=== PATIENT | male | born 1970 | race African-American/Black ===

== ENCOUNTER 2020-01-11 21:36 | Emergency (ER) | payer BC ==
[~2020-01-11] VITALS: Ht 165.1 cm; Wt 77.1 kg
[~2020-01-11 21:36] MED LIST: ATIVAN0.5 MG PO; ENALAPRIL MALE2.5 MG PO; NEXIUM40 MG PO
[2020-01-11 21:45] VITALS: BP 150/100
--- NOTE | 2020-01-11 21:45 | NUR ---
ED Nurse Note: Patient brought into ED by RIGOBERTO SOTELO [id number] from home for concern of high BP. Patient states he started feeling anxious and had sweaty hands and feet and proceeded to check his BP which was 182/108 at home. Upon ED arrival, pt placed in room and connected to cardiac cath technician. Pt BP noted at 150/100 at this time. He denies SOB, CP, N/V/D. He is aaox4, breathing is normal and unlabored at this time. Will cont. to monitor.
--- NOTE | 2020-01-11 21:50 | NUR ---
ED Nurse Note: Patient also states he took an extra dose of his prescribed lisinopril at home.
[2020-01-11 22:07] LABS: BASOPHILS % (AUTO) 2.1 % (0.0-2.0); EOSINOPHILS % (AUTO) 1.6 % (0.0-3.0); HEMATOCRIT 44.9 % (42.0-52.0); LYMPHOCYTES % (AUTO) 28.1 % (20.0-45.0); MEAN CORPUSCULAR VOLUME 90 FL (80-99); MONOCYTES % (AUTO) 6.4 % (1.0-10.0); NEUTROPHILS % (AUTO) 61.8 % (45.0-75.0); PLATELET COUNT 271 K/UL (150-450); RED CELL DISTRIBUTION WIDTH 14.1 % (11.6-14.8); WHITE BLOOD COUNT 6.3 K/UL (4.8-10.8)
[2020-01-11 22:17] LABS: ANION GAP 9 mmol/L (5-15); BLOOD UREA NITROGEN 12 mg/dL (7-18); CALCIUM 9.2 MG/DL (8.5-10.1); CARBON DIOXIDE 28 MMOL/L (21-32); CHLORIDE 105 MMOL/L (98-107); CREATININE 1.2 MG/DL (0.55-1.30); POTASSIUM 3.7 MMOL/L (3.5-5.1); SODIUM 142 MMOL/L (136-145)
[2020-01-11 22:30] LABS: ALANINE AMINOTRANSFERASE 57 U/L (12-78); ALBUMIN 4.3 G/DL (3.4-5.0); ALBUMIN/GLOBULIN RATIO 1.4 (1.0-2.7); ALKALINE PHOSPHATASE 58 U/L (46-116); ASPARTATE AMINO TRANSFERASE 33 U/L (15-37); BILIRUBIN,TOTAL 0.8 MG/DL (0.2-1.0)
--- NOTE | 2020-01-11 22:31 | Diagnostic Imaging Report ---
EXAM: CT Head Without Intravenous Contrast CLINICAL HISTORY: PAIN TECHNIQUE: Axial computed tomography images of the head/brain without intravenous contrast. CTDI is 53.4 mGy and DLP is 1018.8 mGy-cm. One or more of the following dose reduction techniques were used: automated exposure control, adjustment of the mA and/or kV according to patient size, use of iterative reconstruction technique. COMPARISON: No relevant prior studies available. FINDINGS: Brain: Unremarkable. No hemorrhage. No significant white matter disease. No edema. Ventricles: Unremarkable. No ventriculomegaly. Bones/joints: Unremarkable. No acute fracture. Soft tissues: Unremarkable. Sinuses: Unremarkable as visualized. No acute sinusitis. Mastoid air cells: Unremarkable as visualized. No mastoid effusion. IMPRESSION: Unremarkable head/brain CT.
[2020-01-11 22:45] VITALS: BP 143/87
--- NOTE | 2020-01-11 22:45 | NUR ---
ED Nurse Note: Patient is resting in bed at this time. NAD noted. BP is lower than initial BP upon arrival. Patient appears calm. Safety measures met; will continue to monitor.
[2020-01-11 23:33] VITALS: BP 140/88
--- NOTE | 2020-01-11 23:33 | NUR ---
ER DISCHARGE NOTE: Patient is cleared to be discharged per ERMD, pt is aox4, on room air, with stable vital signs. pt was given dc instructions, pt was able to verbalize understanding, pt id band removed. pt is able to ambulate with steady gait. pt took all belongings.
--- NOTE | 2020-01-11 23:57 | Emergency Room Report ---
History of Present Illness General Chief Complaint: General Complaint Source: Patient Present Illness HPI Patient is a 49-year-old male presents for increased blood pressure and dizziness. He reports having prior history of hypertension and states that he takes NISREEN inhibitor. He had noticed his blood pressure to be elevated and therefore took extra dose. Denies any chest discomfort or shortness of breath. Had previous history of coronavirus infection back in October. Denies any severe headache but had a headache initially. He is currently on anticoagulation for deep venous thrombosis. Apparently had ICU stay for coronavirus infection at that time. Denies any current shortness of breath or chest discomfort. Denies any new leg pain or swelling. Allergies: Coded Allergies: IBUPROFEN (Verified Allergy, Severe, Hives, 05/03/12) COVID-19 Screening Contact w/high risk pt: No Experienced COVID-19 symptoms?: No COVID-19 Testing performed TOBACCO FLAVORER: No Patient History Past Medical History: see triage record Reviewed Nursing Documentation: PMH: Agreed; PSxH: Agreed Nursing Documentation-PMH Hx Hypertension: Yes Review of Systems All Other Systems: negative except mentioned in HPI Physical Exam Vital Signs Date Time Temp Pulse Resp B/P (MAP) Pulse Ox O2 Delivery O2 Flow Rate FiO2 01/11/20 21:29 98.2 76 18 150/100 (117) 99 Room Air Sp02 EP Interpretation: reviewed, normal General Appearance: normal inspection, well appearing, no apparent distress, alert, GCS 15, non-toxic Head: atraumatic ENT: normal ENT inspection, hearing grossly normal, normal voice Neck: normal inspection, full range of motion, supple, no bony tend Respiratory: normal inspection, lungs clear, normal breath sounds, no respiratory distress, no retraction, no wheezing Cardiovascular #1: regular rate, rhythm, no edema Gastrointestinal: normal inspection, normal bowel sounds, non tender, soft, no guarding, no hernia Genitourinary: no CVA tenderness Musculoskeletal: normal inspection, back normal, normal range of motion Neurologic: alert, motor strength/tone normal, mlt III-XII nml as tested, oriented x3, responsive, speech normal, normal inspection Psychiatric: normal inspection, judgement/insight normal, mood/affect normal Medical Decision Making Diagnostic Impression: Primary Impression: Hypertension ER Course Patient presented for elevated blood pressure. Differential diagnosis include was not limited to hypertensive crisis, myocardial infarction, pulmonary embolism, among others. Because of complexity of patient's case laboratory tests and imaging studies were ordered. Patient was noted to have overall do gn exam and does not appear to be in any acute distress. He is able to move all of his extremities. His mental status is normal. He is a very good historian and states that his blood pressure has been more elevated earlier in the day. Patient states he has prior history of anxiety. EKG interpreted by me showed normal sinus rhythm with a rate of [address] or T wave changes. Repeat EKG was unchanged. Patient's troponin was noted to be negative. Patient was advised to follow-up with his doctor for outpatient cardiology referral. Patient continues to be pain-free throughout ER stay. He was advised to return if he had a worsening condition or other concerns. CT of the head showed no evidence of acute pathology. The patient is advised to follow up with primary care doctor in 1-2 days. Patient is advised to return if any worsening condition or if any changes in status that are concerning. This report is dictated with [employer] nursing ass[employer] software which may occasionally lead to discrepancies related to use of this software. Labs Test 01/11/20 21:55 White Blood Count 6.3 K/UL (4.8-10.8) Red Blood Count 5.00 M/UL (4.70-6.10) Hemoglobin 15.0 G/DL (14.2-18.0) Hematocrit 44.9 % (42.0-52.0) Mean Corpuscular Volume 90 FL (80-99) Mean Corpuscular Hemoglobin 30.0 PG (27.0-31.0) Mean Corpuscular Hemoglobin Concent 33.4 G/DL (32.0-36.0) Red Cell Distribution Width 14.1 % (11.6-14.8) Platelet Count 271 K/UL (150-450) Mean Platelet Volume 7.0 FL (6.5-10.1) Neutrophils (%) (Auto) 61.8 % (45.0-75.0) Lymphocytes (%) (Auto) 28.1 % (20.0-45.0) Monocytes (%) (Auto) 6.4 % (1.0-10.0) Eosinophils (%) (Auto) 1.6 % (0.0-3.0) Basophils (%) (Auto) 2.1 % (0.0-2.0) Prothrombin Time 10.7 SEC (9.30-11.50) Prothromb Time International Ratio 1.0 (0.9-1.1) Activated Partial Thromboplast Time 28 SEC (23-33) Sodium Level 142 MMOL/L (136-145) Potassium Level 3.7 MMOL/L (3.5-5.1) Chloride Level 105 MMOL/L (98-107) Carbon Dioxide Level 28 MMOL/L (21-32) Anion Gap 9 mmol/L (5-15) Blood Urea Nitrogen 12 mg/dL (7-18) Creatinine 1.2 MG/DL (0.55-1.30) Estimat Glomerular Filtration Rate > 60 mL/min (>60) Glucose Level 115 MG/DL (74-106) Calcium Level 9.2 MG/DL (8.5-10.1) Total Bilirubin 0.8 MG/DL (0.2-1.0) Aspartate Amino Transf (AST/SGOT) 33 U/L (15-37) Alanine Aminotransferase (ALT/SGPT) 57 U/L (12-78) Alkaline Phosphatase 58 U/L (46-116) Troponin I 0.000 ng/mL (0.000-0.056) Total Protein 7.3 G/DL (6.4-8.2) Albumin 4.3 G/DL (3.4-5.0) Globulin 3.0 g/dL Albumin/Globulin Ratio 1.4 (1.0-2.7) Thyroid Stimulating Hormone (TSH) 1.236 uiU/mL (0.358-3.740) EKG Diagnostic Results Rate: normal Rhythm: NSR ST Segments: no acute changes Last Vital Signs Date Time Temp Pulse Resp B/P (MAP) Pulse Ox O2 Delivery O2 Flow Rate FiO2 01/11/20 22:45 98.2 83 14 143/87 98 Room Air Status: improved Disposition: HOME, SELF-CARE Condition: Stable Referrals: NON PHYSICIAN (PCP) Patient Instructions: Hypertension Additional Instructions: Follow up with your doctor for recheck. Return if worse, chest pain or any concerns. Maximo Valdez MD Jan 11, 2020 23:57
--- NOTE | 2020-01-12 14:53 | Diagnostic Imaging Report ---
Indication: Shortness of breath Technique: One view of the chest Comparison: none Findings: Lungs and pleural spaces are clear. Heart size is normal. Impression: No acute process
--- NOTE | 2020-01-14 16:50 | Cardiology Report ---
APPROVED REPORT EKG Measurement Heart [id number] MS [id number] <Conclusion> Normal sinus rhythm Normal ECG
== END 2020-01-11 23:58 | disposition home or self-care (01) ==
LOC: EDBD 21:36 → EMR 21:44
DX: I10 Essential (primary) hypertension (principal); R42 Dizziness and giddiness; Z88.6 Allergy status to analgesic agent; Z86.19 Personal history of other infectious and parasitic diseases; R06.02 Shortness of breath
CPT/HCPCS: 36415; 70450; 71045; 80053; 84443; 84484; 85025; 85610; 85730; 93005; 99284